=== PATIENT | female | born 1945 | race Two or more races ===

== ENCOUNTER → 2020-05-18 | Outpatient (CLI) | payer MEDICARE, MEDICAID ==
[~2020-05-18] MED LIST: REGADENOSON 0.4 MG/5 ML SYRINGE ONE
== END | disposition home or self-care (01) ==
LOC: CFH 07:46
PROVIDERS: ATTEND Internal Medicine Cardiovascular Disease
DX: I48.0 Paroxysmal atrial fibrillation (principal); I10 Essential (primary) hypertension
CPT/HCPCS: 78452; 93017; A9502; J2785

== ENCOUNTER 2020-09-29 21:41 | Emergency (ER) | payer MEDICARE, MEDICAID ==
[~2020-09-29] VITALS: Ht 154.9 cm; Wt 86.1 kg
--- NOTE | 2020-09-29 22:12 | NUR ---
PATIENT WHEELED BACK FROM LOBBY WITH CHIEF C/O PAIN AT PACEMAKER SITE. PER DAUGHTER PATIENT HAS BEEN HAVING PAIN AT HER PACEMAKER SITE SINCE 3 PM THIS AFTERNOON, PATIENT ALSO C/O KOCH AND HER BP HAS BEEN HIGH. EVY, PATIENT CONNECTED TO PHYSICAL EDUCATION INSTRUCTOR, BP IS NOW 178/78, PATIENT IS AMHARIC SPEAKING AND DAUGHTER IS TRANSLATING.
--- NOTE | 2020-09-29 22:45 | NUR ---
LAB AT BEDSIDE
[2020-09-29 22:49] LABS: BASOPHILS % (AUTO) 1 % (0-1); EOSINOPHILS % (AUTO) 3 % (1-7); LYMPHOCYTES % (AUTO) 35 % (22-44); MD NO; MEAN CORPUSCULAR HEMOGLOBIN 30.5 pg (27.0-34.8); MEAN CORPUSCULAR HGB CONC 34.1 g/dL (32.4-35.8); MONOCYTES % (AUTO) 10 % (2-9); NEUTROPHILS % (AUTO) 52 % (42-75); PLATELET COUNT 194 x10^3/uL (130-400); RED BLOOD COUNT 4.18 x10^6/uL (3.82-5.3); RED CELL DISTRIBUTION WIDTH 13.8 % (9.6-15.2)
[2020-09-29 23:01] LABS: ALBUMIN 3.6 g/dL (3.4-5.0); ANION GAP 4 mmol/L (5-15); CALCIUM 9.3 mg/dL (8.5-10.1); CHLORIDE 105 mmol/L (98-107)
--- NOTE | 2020-09-29 23:02 | NUR ---
PT SITTING UPRIGHT ON GURNEY, NAD, VSS. PT DENIES ANY PAIN AT THIS TIME, "IT COMES AND GOES". PT DENIES ANY NEEDS AT THIS TIME. CALL LIGHT AND PERSONAL BELONGINGS WITHIN REACH.
[2020-09-29 23:04] LABS: TROPONIN I < 0.015 ng/mL (0.000-0.045)
--- NOTE | 2020-09-29 23:17 | NUR ---
ERP AT BEDSIDE
--- NOTE | 2020-09-30 | NUR ---
PT TO BATHROOM WITH STEADY GAIT WITH THIS RN. NO ADDITONAL NEEDS AT THIS TIME. DAUGHTER AT BEDSIDE.
[2020-09-30 01:26] VITALS: BP 161/65
--- NOTE | 2020-09-30 01:26 | NUR ---
Patient given discharge instructions and they have confirmed that they understand the instructions. Patient ambulatory with steady gait.
== END 2020-09-30 01:28 | disposition home or self-care (01) ==
LOC: ED 22:30
DX: R07.89 Other chest pain (principal); R51.9 Headache, unspecified; I10 Essential (primary) hypertension; E78.5 Hyperlipidemia, unspecified; I48.91 Unspecified atrial fibrillation; Z95.0 Presence of cardiac pacemaker
CPT/HCPCS: 36415; 71045; 80048; 82040; 83880; 84484; 85025; 93005; 99285

== ENCOUNTER 2021-06-30 08:47 | Outpatient (CLI) | payer MEDICARE, MEDICAID | END 2021-06-30 23:59 | disposition home or self-care (01) | LOC: CVU 08:47 | PROVIDERS: ATTEND Internal Medicine Cardiovascular Disease | DX: I08.3 Combined rheumatic disorders of mitral, aortic and tricuspid valves (principal); I11.9 Hypertensive heart disease without heart failure; I27.21 Secondary pulmonary arterial hypertension | CPT/HCPCS: 93306 ==